=== PATIENT | male | born 1945 | race Two or more races ===

== ENCOUNTER 2024-04-03 21:06 | Emergency (ER) | payer OTHER ==
[~2024-04-03] VITALS: Ht 172.7 cm; Wt 83.9 kg
[2024-04-03] MEDS ORDERED: NITROGLYCERIN 0.4 MG/TAB BOTTLE ONE (21:27)
[2024-04-03] MEDS ORDERED: ASPIRIN 325 MG TABLET ONE (21:27)
[2024-04-03 21:30] LABS: BASOPHILS # (AUTO) 0.1 K/uL (0.0-0.2); BASOPHILS % (AUTO) 0.6 % (0.0-2.0); EOSINOPHILS # (AUTO) 0.1 K/uL (0.0-0.7); EOSINOPHILS % (AUTO) 0.8 % (0.0-6.0); HEMATOCRIT 44 % (39-51); HEMOGLOBIN 14.5 g/dL (13.5-17.5); LYMPHOCYTES # (AUTO) 1.8 K/uL (0.8-4.8); LYMPHOCYTES % (AUTO) 13.3 % (20.0-44.0); MEAN CORPUSCULAR HEMOGLOBIN 28 PG (26.0-33.0); MEAN CORPUSCULAR HGB CONC 33 g/dl (31.0-36.0); MEAN CORPUSCULAR VOLUME 84 fL (80-96); MONOCYTES # (AUTO) 0.9 K/uL (0.1-1.30); MONOCYTES % (AUTO) 6.4 % (2.0-12.0); NEUTROPHILS # (AUTO) 10.8 K/uL (1.8-8.9); NEUTROPHILS % (AUTO) 78.9 % (43.0-81.0); PLATELET COUNT (AUTO) 275 K/uL (150-450); RED BLOOD CELL COUNT(AUTO) 5.21 MIL/uL (4.5-6.0); RED CELL DISTRIBUTION WIDTH 14.9 % (11.5-15.0); WHITE BLOOD COUNT (AUTO) 13.6 K/uL (4.3-11.0)
[2024-04-03] MEDS: NITROGLYCERIN 0.4 MG/TAB BOTTLE SL ONE (21:32)
[2024-04-03] MEDS: ASPIRIN 325 MG TABLET PO ONE (21:32)
[2024-04-03 21:39] LABS: CALCIUM, SERUM 9.3 mg/dL (8.5-10.1); CARBON DIOXIDE 28 mmol/L (21-32); CHLORIDE 101 mmol/L (98-107); CREATININE 1.4 mg/dL (0.6-1.3); GLUCOSE 179 mg/dL (74-106); POTASSIUM 3.2 mmol/L (3.5-5.1); SODIUM SERUM 138 mmol/L (136-145); UREA NITROGEN, BLOOD 23 mg/dL (7-18)
[2024-04-03 21:51] LABS: NT-PRO BNP 70 pg/mL (0-125)
[2024-04-03] MEDS ORDERED: MORPHINE SULFATE INJ 4 MG/ML DISP.SYRIN ONE (22:29)
[2024-04-03] MEDS: MORPHINE SULFATE INJ 2 MG/ML DISP.SYRIN IV ONE (22:33)
[2024-04-03] MEDS: IV NS 0.9% 1,000 ML BAG IV ONE (22:34)
[2024-04-03] MEDS ORDERED: CEFTRIAXONE 1GM BAG (ER ONLY) 50 ML IV ONE (22:50)
[2024-04-03] MEDS ORDERED: AZITHROMYCIN 500 MG VIAL ONE (22:51)
[2024-04-03] MEDS: CEFTRIAXONE 1GM BAG (ER ONLY) 1 GM/50 ML PIGGYBACK IV ONE (22:57)
[2024-04-03] MEDS: AZITHROMYCIN 500 MG in IV D5W 250 ML IV ONE (23:00)
[2024-04-03 23:22] LABS: APPEARANCE,URINE CLEAR (CLEAR); BILIRUBIN,URINE NEGATIVE (NEGATIVE); BLOOD, URINE 2+ Ery/uL (NEGATIVE); COLOR,URINE YELLOW (YELLOW); KETONES,URINE NEGATIVE (NEGATIVE); LEUKOCYTE ESTERASE ,URINE NEGATIVE (NEGATIVE); NITRITE, URINE NEGATIVE (NEGATIVE); PROTEIN,URINE NEGATIVE (NEGATIVE); UGLUCOSE TRACE mg/dL (NEGATIVE); UROBILINOGEN,URINE 0.2 EU/dL (0.2)
[2024-04-03 23:29] LABS: ADD URINE CULTURE NO; BACTERIA,URINE Rare /HPF (None Seen); MUCUS,URINE Few /LPF (None Seen); SQUAMOUS EPITHELIAL CELL,UR None Seen /HPF (None Seen); WBC,URINE 0-2 /HPF (0-3)
[2024-04-04] MEDS ORDERED: IOHEXOL-350 100 ML VIAL IV ONE (01:01)
[2024-04-04] MEDS ORDERED: IV NS 0.9% 250 ML IV ONE (01:01)
[2024-04-04 01:53] LABS: INR 0.96 (0.91-1.10); PARTIAL THROMBOPLASTIN TIME 27.1 SEC (24.3-34.3); PROTHROMBIN TIME 10.2 SECS (9.2-11.1)
[2024-04-04] MEDS ORDERED: MORPHINE SULFATE INJ 4 MG/ML DISP.SYRIN ONE (02:04)
[2024-04-04] MEDS: MORPHINE SULFATE INJ 2 MG/ML DISP.SYRIN IV ONE (02:06)
[2024-04-04] MEDS ORDERED: LIDOCAINE VISCOUS 2% UD 15 ML UDC ONE (02:59)
[2024-04-04] MEDS ORDERED: MAG HYDROX/AL HYDROX/SIMETH 30 ML UDC ONE (02:59)
[2024-04-04] MEDS: MAG HYDROX/AL HYDROX/SIMETH 30 ML UDC PO ONE (03:00)
[2024-04-04] MEDS: LIDOCAINE VISCOUS 2% UD 15 ML UDC MM ONE (03:00)
[2024-04-04 03:15] LABS: ALBUMIN 3.3 g/dL (3.4-5.0); BILIRUBIN,DIRECT 0.2 mg/dL (0.0-0.2); BILIRUBIN,TOTAL 0.7 mg/dL (0.2-1.0); TOTAL PROTEIN, SERUM 7.2 g/dL (6.4-8.2)
[2024-04-04 06:04] VITALS: BP 143/63; TEMP 98.6; O2SAT 94
== END 2024-04-04 06:07 ==
LOC: ER 21:22
DX: R07.9 Chest pain, unspecified (principal); M54.2 Cervicalgia; I71.21 Aneurysm of the ascending aorta, without rupture; I31.39 Other pericardial effusion (noninflammatory); I10 Essential (primary) hypertension; Z20.822 Contact with and (suspected) exposure to COVID-19
CPT/HCPCS: 99291; 72125; 96365; 71045; 96375; 87426 ×2; 99292; 96368; 93005; 71250; 74176; 85025; 80048; 83690; 80076; 81001; 36415; 84484 ×2; 85730; 83880; 71275; 87804 ×2; 96376; J2270 ×2; J0456; J0696; J7050; Q9967